=== PATIENT | male | born 1990 | race Two or more races ===

== ENCOUNTER 2017-08-09 21:49 | Emergency (ER) | payer SELFPAY ==
[~2017-08-09] VITALS: Ht 182.9 cm; Wt 72.6 kg
[2017-08-09 22:15] VITALS: BP 134/83
[2017-08-09] MEDS ORDERED: Tetanus/Diptheria/Pertussis Vaccine 0.5ml Syr IM ONE (22:15)
[2017-08-10] MEDS ORDERED: Bacitracin Oint UD TOPIC ONE (01:00)
[2017-08-10] MEDS ORDERED: ACETAMINOPHEN-1 EAC1 ORAL (01:02)
[2017-08-10] MEDS ORDERED: BACITRACIN15 GM TOPIC (01:02)
[2017-08-10 01:16] VITALS: BP 132/81
[2017-08-10 01:17] VITALS: BP 132/81
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
--- NOTE | 2017-08-10 09:58 | Diagnostic Imaging Report ---
Indication: Trauma Technique: Continuous helical transaxial imaging of the maxillofacial structures obtained without intravenous contrast administration. Coronal 2-D reformats were also obtained. Study obtained in a Siemens sensation [address] Automatic Exposure Control was utilized. Total Dose length Product (DLP): Refer to CT head mGycm CT Dose Index Volume (CTDIvol): Refer to CT head mGy Comparison: None Findings: There is no evidence of an acute fracture. Paranasal sinuses and mastoids are clear. There is a laceration and soft tissue swelling over the left frontal supraorbital region. IMPRESSION: Laceration/contusion. No acute fracture The CT scanner at [facility] is accredited by the [employer] and the scans are performed using dose optimization techniques as appropriate to a performed exam including Automatic Exposure control.
--- NOTE | 2017-08-10 10:17 | Diagnostic Imaging Report ---
Indication: Headache Technique: Contiguous 5 mm thick transaxial imaging of the head obtained in a Siemens Sensation [address] scanner. Soft tissue and bone windows generated. Automatic Exposure Control was utilized. Total Dose length Product (DLP): 1830.[address] Dose Index Volume (CTDIvol): 70.38,28.19 mGy Comparison: none Findings: The size and configuration of the cortical sulci, basal cisterns, and ventricles are within normal limits for age. There is no mass effect, midline shift, or edema identified. There is no evidence of acute hemorrhage or abnormal intra-axial or extra-axial fluid collections. The bones and soft tissues are unremarkable. Impression: No mass effect, edema or acute bleed. The CT scanner at [facility] is accredited by the [employer] and the scans are performed using dose optimization techniques as appropriate to a performed exam including Automatic Exposure control.
== END 2017-08-10 01:18 | disposition home or self-care (01) ==
LOC: EMR 22:13
DX: S01.112A Laceration without foreign body of left eyelid and periocular area, initial encounter (principal); S00.83XA Contusion of other part of head, initial encounter; Y04.2XXA Assault by strike against or bumped into by another person, initial encounter; Y92.9 Unspecified place or not applicable; Z23 Encounter for immunization
CPT/HCPCS: 70450; 70486; 90471; 90715; 99284